=== PATIENT | female | born 1970 ===

== ENCOUNTER 2022-04-24 08:55 | Inpatient (IN) ==
[~2022-04-24 08:55] MED LIST: Acetaminophen IV 1 GM/100ML 1,000 MG/100 ML BAG IV ONE; Buffered Lidocaine 1% SYRIN 1 ml INTRADERM ONE; Famotidine IV 10 MG/ML 2 ml VIAL (20 mg) IV ONE; HYDROmorphone 1 MG/1 ML SYRINGE IV PRN; Lactated Ringers 1000 ml BAG 1,000 ML IV SCH; Ondansetron 4 mg VIAL 2 MG/ML 2 ml VIAL IV PRN; Prochlorperazine 5 mg/ml 2 ml VIAL (10 mg) IV PRN; Scopolamine 1 mg/72hr PATCH TRANSDERM ONE
[2022-04-24] MEDS ORDERED: fentaNYL 100 mcg/2 ml 50 MCG/ML VIAL ONE ×3 (09:21→14:46)
[2022-04-24] MEDS ORDERED: Ondansetron 4 mg VIAL 2 MG/ML 2 ml VIAL ONE (09:21)
[2022-04-24] MEDS ORDERED: Propofol 10 MG/ML 20 ML BTL ONE (09:21)
[2022-04-24] MEDS ORDERED: Midazolam 2 mg/2 ml VIAL 1 mg/ml 2 ml VIAL (2 mg) ONE (09:21)
[2022-04-24] MEDS ORDERED: Lidocaine 2% PF 5 ML VIAL ONE (09:21)
[2022-04-24] MEDS ORDERED: Metoclopramide 5 MG/ML VIAL (10 mg) ONE (09:21)
[2022-04-24] MEDS ORDERED: Dexamethasone IV 4 MG/ML VIAL 1 ml VIAL ONE (09:21)
[2022-04-24] MEDS ORDERED: Scopolamine 1 mg/72hr PATCH ONE (09:44)
[2022-04-24] MEDS ORDERED: Clindamycin 900 MG/D5W BAG 900 MG/50 ML BAG IVPB ONE (09:44)
[2022-04-24] MEDS ORDERED: Famotidine IV 10 MG/ML 2 ml VIAL (20 mg) ONE (09:44)
[2022-04-24] MEDS ORDERED: Heparin 5000 UNITS/ML 1 mL VIAL ONE (09:44)
[2022-04-24] MEDS ORDERED: Bupivacaine 0.25% w/EPI 10 ML SDV ONE (10:44)
[2022-04-24] MEDS ORDERED: Methylene Blue 0.5 % 50 MG/10 ML AMP IV ONE (10:44)
[2022-04-24] MEDS ORDERED: Ondansetron 4 mg VIAL 2 MG/ML 2 ml VIAL IV PRN (14:36)
[2022-04-24] MEDS ORDERED: HYDROmorphone 1 MG/1 ML SYRINGE IV SLOW PU PRN (14:36)
[2022-04-24] MEDS ORDERED: Fluticasone NASAL SPRAY 50MCG 16 gm SPRAY BTL BOTH NARES PRN (14:46)
[2022-04-24] MEDS ORDERED: Acetaminophen IV 1 GM/100ML 1,000 MG/100 ML BAG IV ONE (14:46)
[2022-04-24] MEDS ORDERED: Albuterol HFA INHALER 8 gm MDI INH PRN (14:46)
[2022-04-24] MEDS ORDERED: Albuterol 2.5mg/3 ml (0.083%) NEB.SOLN INH PRN (14:46)
[2022-04-24] MEDS: fentaNYL 100 mcg/2 ml 50 MCG/ML VIAL IV PRN ×2 (14:47→14:59)
[2022-04-24] MEDS ORDERED: LORazepam 2 mg VIAL 1 ml IV PUSH PRN (14:49)
[2022-04-24] MEDS ORDERED: Lorazepam PYXIS KEY PRN (14:49)
[2022-04-24] MEDS ORDERED: HYDROmorphone 1 MG/1 ML SYRINGE ONE (15:16)
[2022-04-24] MEDS ORDERED: Mometasone 220 MCG MDI INH PRN (17:24)
[2022-04-24] MEDS: Lactated Ringers 1000 ml BAG 1,000 ML IV SCH (17:28)
[2022-04-24] MEDS: Famotidine IV 10 MG/ML 2 ml VIAL (20 mg) IV SLOW PU SCH (21:50)
[2022-04-24] MEDS: Heparin 5000 UNITS/ML 1 mL VIAL SUBCUT SCH (21:53)
[2022-04-24] MEDS: HYDROmorphone 0.5 MG/0.5 ML SYRINGE IV SLOW PU PRN (21:59)
[2022-04-25] MEDS: Lactated Ringers 1000 ml BAG 1,000 ML IV SCH ×2 (01:26→10:09)
[2022-04-25] MEDS: HYDROmorphone 0.5 MG/0.5 ML SYRINGE IV SLOW PU PRN ×2 (04:08→14:59)
[2022-04-25] MEDS: Heparin 5000 UNITS/ML 1 mL VIAL SUBCUT SCH ×3 (06:10→21:24)
[2022-04-25] MEDS: Famotidine IV 10 MG/ML 2 ml VIAL (20 mg) IV SLOW PU SCH ×2 (10:06→21:26)
[2022-04-25] MEDS: D5W 1/2 NS KCl 20 meq 1000 ml 1,000 ML IV SCH (17:28)
[2022-04-26] MEDS: D5W 1/2 NS KCl 20 meq 1000 ml 1,000 ML IV SCH (03:06)
[2022-04-26] MEDS: HYDROmorphone 0.5 MG/0.5 ML SYRINGE IV SLOW PU PRN ×2 (03:14→06:38)
[2022-04-26] MEDS: Heparin 5000 UNITS/ML 1 mL VIAL SUBCUT SCH (06:09)
[2022-04-26 08:03] VITALS: BP 106/61
[2022-04-26] MEDS: Famotidine IV 10 MG/ML 2 ml VIAL (20 mg) IV SLOW PU SCH (09:35)
== END 2022-04-26 11:35 | disposition home or self-care (01) | DRG 418 ==
LOC: AA 08:55 → SSU 17:11
PROVIDERS: ADMIT Surgery